=== PATIENT | female | born 1955 | race Two or more races ===

== ENCOUNTER 2020-08-12 06:00 | Day surgery (SDC) | payer OTHER ==
[~2020-08-12 06:00] MED LIST: SINGULAIR10 MG PO; SYMBICORT 16010.2 GM IH
== END 2020-08-12 20:00 | disposition home or self-care (01) ==
LOC: CIR.AMB 06:00
PROVIDERS: ATTEND Surgery
DX: D05.12 Intraductal carcinoma in situ of left breast (principal); N62 Hypertrophy of breast; Z20.822 Contact with and (suspected) exposure to COVID-19